=== PATIENT | female | born 1985 ===

== ENCOUNTER 2017-02-23 01:50 | Outpatient (CLI) | payer BC ==
[2017-02-23 02:05] VITALS: BP 135/89; PULSE 85; RESP 16; TEMP 98.6
--- NOTE | 2017-03-26 11:45 | P.MSEPDOC ---
Presenting Problems - Arrival Data Date of Arrival on Unit: 02/23/17 Time of Arrival on Unit: 01:50 Mode of Transport: Wheelchair - Complaint OB-Reason for Admission/Chief Complaint: Decreased Movement Medical History - Information : 4 Para: 2 Term: 1 : 1 Abortions: Spontaneous or Elective: 1 Number of Living Children: 2 - Gestational Age Gestational Age by ELMA (wks/days): 35 Weeks and 1 Days Review of Systems - Review of Systems Constitutional: No problems Breast: No problems ENT: No problems Cardiovascular: No problems Respiratory: No problems Gastrointestinal: No problems Genitourinary: No problems Musculoskeletal: No problems Neurological: No problems Skin: No problems Vital Signs - Temperature Temperature: 98.6 F Temperature Source: Temporal Artery Scan - Pulse Pulse Oximetery Pulse Rate: 85 Pulse Assessment Method: Pulse Oximetry - Respirations Respiratory Rate: 16 Oxygen Delivery Method: Room Air - Blood Pressure Sitting Blood Pressure: 135/89 Blood Pressure Mean: 104 Blood Pressure Source: Automatic Cuff Medical Screen Scoring (Pre) - Cervical Exam Dilation: Exam Deferred Effacement: Exam Deferred Membranes: Intact - Uterine Contractions Frequency: N/A Duration: N/A Intensity: N/A - Maternal Vital Signs Maternal Temperature: N/A Maternal Blood Pressure: N/A Signs of Preeclampsia: N/A Maternal Respirations: N/A - Maternal Trauma Maternal Trauma: N/A - Assessment Baseline FHR: 130 Heart Rate - NICHD Category: Category I (Normal) = 0 NST: Reactive Position: N/A Station: N/A - Total Score Total Score (Pre): 0 - Level of Risk Level of Risk: Low (0-5) Physician Notification (Pre) - Physician Notified Physician Notified Date: 02/23/17 Physician Notified Time: 02:28 Physician/Practitioner Notifed:: Dr. Sellers - Notification Comment Comment: Discharge home with instructions, patient to keep regularly scheduled appoinment with Dr. Lawrence for 03/01/2017 Disposition - Disposition OB Disposition: [facility] Suite, Discharge to home, Written follow up instructions reviewed Discharge Date: 02/23/17 Discharge Time: 02:35 I agree with the RN Medical Screening Exam: Yes Risk & Benefit of care provided described in d/c instruction: Yes Diagnosis: DECREASED MOVEMENTS, THIRD TRIMESTER, UNSP
== END 2017-02-23 02:35 | disposition home or self-care (01) ==
LOC: FBPOP 01:50
PROVIDERS: ATTEND Obstetrics & Gynecology
DX: O36.8130 Decreased fetal movements, third trimester, not applicable or unspecified (principal); Z3A.35 35 weeks gestation of pregnancy
CPT/HCPCS: 59025; 99213

== ENCOUNTER → 2019-09-07 | Outpatient (CLI) | payer BC ==
--- NOTE | 2019-09-07 15:49 | US ---
EXAMINATION TYPE: US abdomen complete DATE OF EXAM: 09/07/2019 COMPARISON: NONE CLINICAL HISTORY: R10.9 UNSPECIFIED ABD PAIN. EXAM MEASUREMENTS: Liver Length: 12.2 cm Gallbladder Wall: 0.1 cm CBD: 0.3 cm Spleen: 10.6 cm Right Kidney: 9.2 x 4.1 x 4.8 cm Left Kidney: 9.0 x 5.0 cm Pancreas: Obscured by bowel gas Liver: homogeneous Gallbladder: wnl Evidence for sonographic Zapata's sign: CBD: wnl Spleen: wnl Right Kidney: No hydronephrosis or masses seen Left Kidney: No hydronephrosis or masses seen Upper IVC: wnl Abd Aorta: proximal portion obscured by bowel gas The visualized liver is homogenous. The intrahepatic portion of the IVC and visualized mid and dista l abdominal aorta are within normal limits. There is no evidence of cholelithiasis. Common bile jaleel t is unremarkable. Suboptimal evaluation of pancreas on images saved secondary to shadowing from over lying bowel gas per technologist. The spleen is unremarkable. Kidneys are symmetric and free of hyd ronephrosis. No renal lesions are seen. IMPRESSION: Suboptimal evaluation of pancreas. No acute findings are identified.
--- NOTE | 2019-09-07 15:54 | US ---
EXAMINATION TYPE: US pelvic complete DATE OF EXAM: 09/07/2019 COMPARISON: NONE CLINICAL HISTORY: pain. TECHNIQUE: Transabdominal (TA). Transabdominal sonographic images of the pelvis were acquired. Date of LMP: 08/26/19 EXAM MEASUREMENTS: Uterus: 10.0 x 3.9 x 5.4 cm Endometrial Stripe: 0.4 cm Right Ovary: 3.0 x 1.8 x 1.6 cm Left Ovary: 2.2 x 1.4 x 1.5 cm 1. Uterus: Anteverted wnl 2. Endometrium: wnl 3. Right Ovary: wnl 4. Left Ovary: wnl Spectral, color and waveform doppler imaging shows good arterial and venous flow within the ovaries ; 5. Bilateral Adnexa: wnl 6. Posterior cul-de-sac: wnl IMPRESSION: Unremarkable transabdominal pelvic ultrasound study.
== END | disposition home or self-care (01) ==
LOC: RADUSWWP 14:22
PROVIDERS: ATTEND Physician Assistant
DX: R10.9 Unspecified abdominal pain (principal)
CPT/HCPCS: 76700; 76856

== ENCOUNTER → 2019-10-27 | Outpatient (CLI) | payer BC ==
[2019-10-27 13:46] LABS: Basophils % (A) 0 %; Eosinophils # (A) 0.1 k/uL (0-0.7); Eosinophils % (A) 2 %; HCT 36.5 % (34.0-46.0); HGB 11.5 gm/dL (11.4-16.0); Lymphocytes # (A) 0.8 k/uL (1.0-4.8); Lymphocytes % (A) 21 %; MCH 28.6 pg (25.0-35.0); MCHC 31.7 g/dL (31.0-37.0); MCV 90.4 fL (80.0-100.0); Mean Platelet Volume 7.9; Monocytes # (A) 0.2 k/uL (0-1.0); Monocytes % (A) 6 %; Neutrophils # (A) 2.7 k/uL (1.3-7.7); Neutrophils % (A) 69 %; Platelet Count 181 k/uL (150-450); RBC 4.04 m/uL (3.80-5.40); RDW 12.8 % (11.5-15.5); WBC 3.9 k/uL (3.8-10.6)
== END | disposition home or self-care (01) ==
LOC: LABWHC1 12:21
PROVIDERS: ATTEND Obstetrics & Gynecology
DX: Z01.818 Encounter for other preprocedural examination (principal); N92.0 Excessive and frequent menstruation with regular cycle
CPT/HCPCS: 36415; 85025

== ENCOUNTER 2019-10-31 06:49 | Day surgery (SDC) | payer BC ==
[2019-10-24 15:10] VITALS: BMI 18.8
[~2019-10-31 06:49] MED LIST: DEXAMETHASONE SOD PHOSPHATE 10 MG/ML 1 ML VIAL IV ONE; LACTATED RINGERS 1,000 ML IV SCH; LIDOCAINE 1% (10MG/ML) FOR IV START INTRADERMA PRN; Pre Op ABX Message 1 EACH MISC MISCELLANE ONE
[2019-10-31 07:39] VITALS: RESP 16
[2019-10-31] MEDS ORDERED: fentaNYL (PF) 50 MCG/ML 2 ML AMP ONE (07:52)
[2019-10-31] MEDS ORDERED: PROPOFOL 10 MG/ML 20 ML VIAL IV ONE (07:52)
[2019-10-31] MEDS ORDERED: KETOROLAC 30 MG/ML 1 ML VIAL ONE (07:52)
[2019-10-31] MEDS ORDERED: LIDOCAINE 1% INJ 10MG/ML (20 ML MDV) ONE (07:52)
[2019-10-31] MEDS ORDERED: MIDAZOLAM 2 MG/2 ML VIAL ONE (07:52)
--- NOTE | 2019-10-31 08:31 | P.OP ---
Date of Procedure: 10/31/19 Preoperative Diagnosis: menorrhagia, dysmenorrhea Postoperative Diagnosis: normal appearing endometrial cavity Procedure(s) Performed: hysteroscopy, NovaSure endometrial ablation Anesthesia: DENNIS Surgeon: Sparkle Lawrence Estimated Blood Loss (ml): 5 IV fluids (ml): 400 Urine output (ml): 0 Pathology: none sent Condition: stable Disposition: PACU Operative Findings: Normal-appearing endometrial cavity Description of Procedure: Patient is brought to the operating suite where a general anesthetic is administered without difficulty. She's placed in the dorsal lithotomy position. The cervix, vagina, perineal bodies are all prepped and draped in the usual sterile fashion. Examination under anesthesia reveals a small anteverted anteflex uterus, negative adnexa bilaterally. The appropriate timeout is performed to assure proper patient and procedural identification. Urine hCG is negative, antibiotics are not deemed appropriate. Nonlatex Kraft catheter is placed to drain the bladder, the bladder is empty. The anterior lip of the cervix is grasped with a double-tooth tenaculum. The uterus sounds to a depth of 9 cm in the anteverted position. The cervix is gently and systematically dilated using Hanks dilators. The hysteroscope was placed and fluid is injected to distend the uterine cavity. Visualization reveals normal-appearing ostia bilaterally, no fibroids, septa, polyps, or other defects. Hysteroscope was removed. NovaSure wand is placed and seated appropriately. Uterine length of 6.0 cm, width of 4.2 cm is calibrated. The machine properly enabled. For 59 seconds and a power of the 139 W the procedure is carried out. When the machine turned off, the NovaSure wand is removed. Hysteroscope was once again placed and the cavity is noted to be uniformly blanched, consistent with successful procedure. Instrumentation is removed from the vagina. Anterior cervical lip is clean and dry. All sponge needle and enhancement counts are correct at the end of the procedure. Toradol is given prior to leaving the operative suite. Patient is brought to the recovery room in stable condition with a pulse of 72, blood pressure 115/81. She will follow-up with me in the office in 2 weeks. Total estimated blood loss 5 mL, fluid replacement 400 mL's.
[2019-10-31 08:46] VITALS: TEMP 97.6
[2019-10-31] MEDS ORDERED: SODIUM CHLORIDE 0.9% 1,000 ML IV ONE (08:50)
[2019-10-31] MEDS: HYDROmorphone 0.5 MG/0.5 ML SYRINGE IVP PRN ×3 (08:53→09:13)
[2019-10-31 09:44] VITALS: BP 127/74; PULSE 70
[2019-10-31] MEDS ORDERED: IBUPROFEN 200 MG TAB PO ONE (09:49)
[2019-10-31] MEDS ORDERED: ONDANSETRON 4 MG/2 ML VIAL ONE (09:53)
== END 2019-10-31 10:32 ==
LOC: OR 06:49
PROVIDERS: ATTEND Obstetrics & Gynecology
DX: N92.4 Excessive bleeding in the premenopausal period (principal); N94.6 Dysmenorrhea, unspecified; Z88.0 Allergy status to penicillin; Z91.040 Latex allergy status; Z98.51 Tubal ligation status; Z98.890 Other specified postprocedural states; Z86.32 Personal history of gestational diabetes; Z87.59 Personal history of other complications of pregnancy, childbirth and the puerperium; Z82.49 Family history of ischemic heart disease and other diseases of the circulatory system; Z83.3 Family history of diabetes mellitus; Z80.0 Family history of malignant neoplasm of digestive organs
CPT/HCPCS: 81025; 58563; J2250; J1100; J2405; J2001; J3010; J1885; J2704; J1170